=== PATIENT | female | born 1980 | race Caucasian/White ===

== ENCOUNTER 2016-12-18 09:14 | Emergency (ER) | payer OTHER ==
[2016-12-18 09:44] VITALS: BP 140/86
--- NOTE | 2016-12-18 11:23 | RAD ---
INDICATION: Left toe injury COMPARISON: None TECHNIQUE: AP, lateral, and oblique views of the foot were obtained. FINDINGS: There is a minimally distracted and minimally angulated oblique fracture of the diaphysis of the proximal falx of the fourth toe. There are no other fractures. There is mild soft tissue swelling. IMPRESSION: FRACTURE FOURTH TOE DESCRIBED
--- NOTE | 2016-12-18 11:37 | UC ---
Lower Extremity/Ankle HPI - HPI Summary HPI Summary: twisted left ankle last night body weight landing on toes pain in 4th toe - History of Current Complaint Chief Complaint: UCLowerExtremity Stated Complaint: TOE INJURY Time Seen by Provider: 12/18/16 10:57 Hx Obtained From: Patient Hx Last Menstrual Period: 12/16/16 ?: No Onset/Duration: Sudden Onset, Lasting Days - 1, Still Present Severity Initially: Moderate Severity Currently: Moderate Pain Intensity: 5 Pain Scale Used: 0-10 Numeric Aggravating Factor(s): Standing, Ambulation Alleviating Factor(s): Rest, Elevation Able to Bear Weight: Yes - with pain and limp - Allergies/Home Medications Allergies/Adverse Reactions: Allergies Allergy/AdvReac Type Severity Reaction Status Date / Time No Known Drug Allergy Allergy See Comment Verified 12/18/16 09:39 PMH/Surg Hx/FS Hx/Imm Hx Previously Healthy: Yes - Surgical History Surgical History: Yes Surgery Procedure, Year, and Place: mole removed - Family History Known Family History: Positive: None - Social History Occupation: Employed Full-time Lives: With Family Alcohol Use: Weekly Substance Use Type: None Smoking Status (MU): Never Smoked Tobacco Have You Smoked in the Last Year: No - Immunization History Most Recent Influenza Vaccination: will consider this season Most Recent Tetanus Shot: 06/06/14 Most Recent Pneumonia Vaccination: n/a Review of Systems Constitutional: Negative Skin: Negative Eyes: Negative ENT: Negative Respiratory: Negative Cardiovascular: Negative Gastrointestinal: Negative Genitourinary: Negative Motor: Negative Neurovascular: Negative Musculoskeletal: Negative, Arthralgia - left 3/4/5 toes Neurological: Negative Psychological: Negative Is Patient Immunocompromised?: No All Other Systems Reviewed And Are Negative: Yes Physical Exam Triage Information Reviewed: Yes Appearance: Well-Appearing, Well-Nourished, Pain Distress Vital Signs: Initial Vital Signs Temp 98.2 F 12/18/16 09:39 Pulse 72 12/18/16 09:39 Resp 16 12/18/16 09:39 BP 140/86 12/18/16 09:39 Pulse Ox 100 12/18/16 09:39 Vital Signs Reviewed: Yes Eye Exam: Normal Eyes: Positive: Conjunctiva Clear ENT Exam: Normal ENT: Positive: Normal ENT inspection, Hearing grossly normal. Negative: Nasal congestion, Nasal drainage, Trismus, Muffled/hoarse voice Dental Exam: Normal Neck exam: Normal Neck: Positive: Supple, Nontender Respiratory Exam: Normal Respiratory: Positive: No respiratory distress, No accessory muscle use Cardiovascular Exam: Normal Cardiovascular: Positive: RRR, Pulses Normal, Brisk Capillary Refill Musculoskeletal Exam: Normal Musculoskeletal: Positive: Strength Intact, ROM Intact, Edema @ - 3/4 distal metatarsal Neurological Exam: Normal Neurological: Positive: Alert, Muscle Tone Normal Psychological Exam: Normal Skin Exam: Normal Diagnostics - Radiology No standard instances Xray Interpretation: Positive (See Comments) - minimally displaced oblique 4th phlange fracture Radiology Interpretation Completed By: ED Physician, Radiologist Lower Extremity Course/Dx - Course Course Of Treatment: jane tape, post op shoe, crutches, rice, pain med follow with ortho mid next week - Differential Dx/Diagnosis Differential Diagnosis/HQI/PQRI: Contusion, Dislocation, Fracture (Closed), Sprain, Strain Provider Diagnoses: left 4th toe minimally displaced oblique fracture Discharge - Discharge Plan Condition: Stable Disposition: HOME Prescriptions: Hydrocodone-Acetaminophen [Hydrocodone/Acetaminophen 5-325 mg] 1 tab PO Q6HR PRN #16 tab MDD 4 PRN Reason: Pain Ibuprofen TAB* [Motrin TAB* 600 MG] 600 mg PO Q6H PRN #40 tab PRN Reason: Pain Patient Education Materials: Crutch Instructions (ED), Toe Fracture (ED), RICE Therapy (ED) Referrals: [facility] [Provider Group] - 4 Days
== END 2016-12-18 12:20 | disposition home or self-care (01) ==
LOC: UCEAST 09:14
DX: S92.912A Unspecified fracture of left toe(s), initial encounter for closed fracture (principal); X50.1XXA Overexertion from prolonged static or awkward postures, initial encounter; Y92.9 Unspecified place or not applicable
CPT/HCPCS: 99213; G0463

== ENCOUNTER 2018-02-27 09:41 | Emergency (ER) | payer OTHER ==
[2018-02-27 09:51] VITALS: BP 147/96
--- NOTE | 2018-02-27 09:53 | UC ---
Hand/Wrist HPI - HPI Summary HPI Summary: 38 y/o female presents to the urgent care c/o left hand pain s/p slipping on ice and falling on the outstretched hand around midnight. Pt report she was taking her dog to walk and she slipped on her icy porch. This morning the base of her thumb is swollen w/ a bruise and decrease ROM. Pain w/ movement is sharp 8/10. She applied ice, but has not taking any medications for pain. Pt denies wrist pain, numbness or tingling sensation over the hand, SOB, chest pain, abdominal pain, N/V/D. LMP:02/15/2018 and declines test. - History Of Current Complaint Chief Complaint: UCUpperExtremity Stated Complaint: HAND INJURY Time Seen by Provider: 02/27/18 09:50 Hx Obtained From: Patient Hx Last Menstrual Period: 01/28/18 Onset/Duration: Sudden Onset, Lasting Hours - 10 hrs, Still Present Severity Initially: Moderate Severity Currently: Moderate Pain Intensity: 8 Pain Scale Used: 0-10 Numeric Character Of Pain: Sharp Aggravating Factor(s): Movement, Flexion, Pulling Alleviating Factor(s): Rest, Ice Associated Signs And Symptoms: Positive: Swelling, Bruising. Negative: Numbness /Tingling Related History: Dominant Hand Right - Allergies/Home Medications Allergies/Adverse Reactions: Allergies Allergy/AdvReac Type Severity Reaction Status Date / Time No Known Allergies Allergy Verified 02/27/18 09:45 PMH/Surg Hx/FS Hx/Imm Hx Previously Healthy: Yes - Pt denies PMHX - Surgical History Surgical History: Yes Surgery Procedure, Year, and Place: mole removed - Family History Known Family History: Positive: None - Pt denies FMHX - Social History Occupation: Employed Full-time Lives: With Family Alcohol Use: Occasionally Substance Use Type: None Smoking Status (MU): Never Smoked Tobacco Have You Smoked in the Last Year: No - Immunization History Most Recent Influenza Vaccination: will consider this season Most Recent Tetanus Shot: 06/06/14 Most Recent Pneumonia Vaccination: n/a Review of Systems All Other Systems Reviewed And Are Negative: Yes Constitutional: Positive: Negative Skin: Positive: Bruising - Base of Rt thumb w/ swelling Eyes: Positive: Negative ENT: Positive: Negative Respiratory: Positive: Negative Cardiovascular: Positive: Negative Gastrointestinal: Positive: Negative Genitourinary: Positive: Negative Motor: Positive: Negative Neurovascular: Positive: Negative Musculoskeletal: Positive: Decreased ROM - RT thumb, Other: - Rt thumb pain and Rt hand pain s/p fall Neurological: Positive: Negative Psychological: Positive: Negative Is Patient Immunocompromised?: No Physical Exam - Summary Physical Exam Summary: Vital Signs Reviewed: Yes General: Well developed well nourished obese female sitting in the examining table w/o any apparent distress Eyes: Positive: Conjunctiva Clear - PERRLA, EOMI ENT: Positive: Normal ENT inspection, Hearing grossly normal, Pharynx normal, TMs normal Neck: Positive: Supple, Nontender, No Lymphadenopathy Respiratory: Positive: Chest non-tender, Lungs clear, Normal breath sounds, No respiratory distress Cardiovascular: Positive: RRR, No Murmur, Pulses Normal, Brisk Capillary Refill Abdomen Description: Positive: Nontender, No Organomegaly, Soft. Negative: CVA Tenderness (R), CVA Tenderness (L) Bowel Sounds: Positive: Present Musculoskeletal: Positive: Strength Intact, No Edema, RT Hand/Fingers: the R hand is without obvious asymmetry or deformity when compared to the L hand. mild swelling around the base of the RT first MCPJ and thena eminence w/ bruising and echymisis, no erythema, atrophy, or obvious deformity. No surface trauma, open wounds,bony deformity. Normal cascade of fingers. Normal flexion and extension of fingers, except for thumb due to pain. FDS and FDP intact against resistance. No focal fullness, throbbing pain, swelling of finger tip. Pulses and capillary refill WNL, positive reflexes and sensation intact Neurological Exam: Normal Psychological Exam: Normal Skin Exam: Normal Triage Information Reviewed: Yes Vital Signs: Initial Vital Signs Temp 98 F 02/27/18 09:48 Pulse 92 02/27/18 09:48 Resp 17 02/27/18 09:48 BP 147/96 02/27/18 09:48 Pulse Ox 100 02/27/18 09:48 Hand/Wrist Course/Dx - Course Course Of Treatment: 38 y/o female presents to the urgent care c/o left hand pain s/p slipping on ice and falling on the outstretched hand around midnight. Pt report she was taking her dog to walk and she slipped on her icy porch. This morning the base of her thumb is swollen w/ a bruise and decrease ROM. Pain w/ movement is sharp 8/10. She applied ice, but has not taking any medications for pain. Pt denies wrist pain, numbness or tingling sensation over the hand, SOB, chest pain, abdominal pain, N/V/D. LMP:02/15/2018 and declines test. Hx obtained. RT hand X-ray ordered. Impression: Impacted displaced mildly comminuted fracture at the base of the first metacarpal, no dislocation, sorrounding soft tissue swelling observed as per radiologist. Pt's symptoms discussed w/ Dr Smith and he recommended a thumb spica splint and F/u w/ orthopedic. Pts hand immobilized with thumb spica splint. Advised RICE: Rest , Ice, elevation, Rx Ibuprofen PO. There was no neurovascular compromise after splint application placed by nurse; the splint was in good alignment and the pt had good sensation and capillary refill at the time of discharge.Pt strongly advised to f/u w/ Orthopedic DR Wilson as soon as possible for further management.Pt's BP is elevated today advised to decrease salt in diet, monitor BP and f/u with PCP for further management. Pt understood and agreed w/ plan of care. - Differential Dx/Diagnosis Differential Diagnosis/HQI/PQRI: Contusion, Fracture, Sprain, Strain, Tendonitis Provider Diagnosis: Closed left hand fracture, Left hand pain, Elevated BP without diagnosis of hypertension - Physician Notifications Discussed Patient Care With: Maninder Smith - DR Smith agreed w/ pt's plan of care. Discharge - Sign-Out/Discharge Documenting (check all that apply): Patient Departure - d/c home All imaging exams completed and their final reports reviewed: Yes - Discharge Plan Condition: Stable Disposition: HOME Prescriptions: Ibuprofen TAB* [Motrin TAB* 800 MG] 800 mg PO Q6H PRN #30 tab PRN Reason: Pain Patient Education Materials: Hand Fracture (ED), Low-Sodium Diet (ED) Forms: *Work Release Referrals: [facility] [Outside] - 3 Days Marva Wilson MD [Medical Doctor] - 1 Day Additional Instructions: 1-Please take Ibuprofen PO q6-8hrs after meals as directed to alleviate pain and swelling. 2-Please apply ice, keep your hand immobilized with the thumb spica splint. 3- Please f/u with Orthopedic DR Wilson tomorrow for further evaluation and treatment. 4- Your BP is elevated today. please decrease salt in your diet, monitor BP and if it continues to be elevated please f/u with your PCP for further management - Billing Disposition and Condition Condition: STABLE Disposition: Home
[2018-02-27] MEDS ORDERED: Ibuprofen TAB* 400 MG PO ONE (10:00)
== END 2018-02-27 10:55 | disposition home or self-care (01) ==
LOC: UCEAST 09:41
DX: S62.232A Other displaced fracture of base of first metacarpal bone, left hand, initial encounter for closed fracture (principal); W00.0XXA Fall on same level due to ice and snow, initial encounter; Y92.9 Unspecified place or not applicable; R03.0 Elevated blood-pressure reading, without diagnosis of hypertension
CPT/HCPCS: 99213; A9270-GY; G0463

== ENCOUNTER 2018-03-08 10:42 | Day surgery (SDC) | payer OTHER ==
[~2018-03-08 10:42] MED LIST: Buffered Lidocaine 0.9% SYRIN* 5 ML/SYR SYRINGE INTRADERM ONE; Lactated Ringers 1000 ML Bag* 1,000 ML IV SCH
[2018-03-08] MEDS ORDERED: ceFAZolin 2 GM PREMIX in ORs 2 GM/50 ML BAG IVPB ONE (10:54)
[2018-03-08] MEDS ORDERED: Lidocaine 1% INJ* 10 MG/ML 30 ML SDV ONE (12:07)
[2018-03-08] MEDS ORDERED: fentaNYL* 50 MCG/ML 2 ML VIAL (100 MCG VIAL) ONE ×2 (12:10→13:06)
[2018-03-08] MEDS ORDERED: Lidocaine 2% PF * 5 ML VIAL ONE (12:10)
[2018-03-08] MEDS ORDERED: Propofol* 10 MG/ML 20 ML BTL ONE (12:10)
[2018-03-08] MEDS ORDERED: Ketorolac INJ* 30 MG/ML 1 ML VIAL IV PRN (12:35)
[2018-03-08] MEDS ORDERED: Naloxone* 0.4 MG/ML 1 ML VIAL IV PRN (12:35)
[2018-03-08] MEDS ORDERED: fentaNYL* 50 MCG/ML 2 ML VIAL (100 MCG VIAL) IV PRN (12:35)
[2018-03-08] MEDS ORDERED: Ondansetron INJ* 2 MG/ML VIAL IV PRN (12:35)
[2018-03-08] MEDS ORDERED: Ketorolac INJ* 30 MG/ML 1 ML VIAL ONE (13:00)
[2018-03-08] MEDS ORDERED: traMADol TAB* 50 MG ONE (13:27)
[2018-03-08] MEDS ORDERED: Acetaminophen TAB* 325 MG ONE (13:29)
[2018-03-08 14:14] VITALS: BP 135/85
--- NOTE | 2018-03-08 21:52 | OP ---
DATE OF OPERATION: 03/08/18 [facility] DATE OF : 76 SURGEON: Jazzy Kiser MD COST CONTROLLER: DAPHNE Villagran. ANESTHESIA: General. PRE-OP DIAGNOSIS: Left thumb metacarpal proximal fracture. POST-OP DIAGNOSIS: Left thumb metacarpal proximal fracture. OPERATIVE PROCEDURE: Closed reduction and pinning, left thumb metacarpal. ESTIMATED BLOOD LOSS: Zero. INDICATIONS FOR PROCEDURE: Xochitl is a 38-year-old female who suffered a fracture of her left thumb metacarpal at the base just extraarticular, significantly displaced. She presents for closed reduction and pinning. DESCRIPTION OF PROCEDURE: The patient was brought to the operating room, was given a general anesthetic, and placed in the supine position on the operating table with a tourniquet around her left upper extremity. The tourniquet was not used during the procedure. The skin of her left upper extremity was prepped and draped in the usual sterile fashion. The fracture was reduced with manipulation and traction and then two 0.045 inch K-wires were driven, one through the base of the distal fragment and into the proximal fragment and the other through the distal fragment and into the trapezium across the CMC joint. The position of the hardware and fracture fragments were checked on the C-arm in the AP and lateral views and found to be satisfactory. The pins were bent and cut and dressed with Xeroform, 4x4, Webril, and an Giovany wrap with a thumb spica splint. The patient tolerated the procedure well and was brought to the recovery room in good condition. [id number]/[facility] #: [id number] [facility]ENTER[facility]acia
== END 2018-03-08 14:01 | disposition home or self-care (01) ==
LOC: OREAST 10:42
PROVIDERS: ATTEND Orthopaedic Surgery
DX: S62.232A Other displaced fracture of base of first metacarpal bone, left hand, initial encounter for closed fracture (principal); W22.8XXA Striking against or struck by other objects, initial encounter; Y92.89 Other specified places as the place of occurrence of the external cause
CPT/HCPCS: 76000; 81025; A9270-GY; C1776; J0690; J1885; J2704; J3010